=== PATIENT | male | born 1985 | race Caucasian/White ===

== ENCOUNTER 2019-09-25 06:20 | Outpatient (CLI) | payer BC ==
[2019-09-25 12:49] LABS: #Basophils 0.1 thou/uL (0.0-0.2); #Eosinphils 0.2 thou/uL (0.0-0.7); #Lymphocytes 2.7 thou/uL (1.20-3.40); #Monocytes 1.1 thou/uL (0.11-0.59); #Neutrophils 4.2 thou/uL (1.40-6.50); %Basophils 1.1 % (0.0-1.0); %Eosinophils 2.2 % (0.0-10.0); %Lymphocytes 32.3 % (21.0-51.0); %Monocytes 12.8 % (0.0-10.0); %Neutrophils 51.6 % (42.0-75.0); Hemoglobin 16.8 g/dL (14.0-18.0); Mean Corpuscular HGB CONC 34.5 g/dL (32.0-36.0); Mean Corpuscular Hemoglobin 30.1 pg (27.0-31.0); Mean Corpuscular Volume 87.2 fL (78.0-98.0); Mean Platelet Volume 7.3 fL (7.4-10.4); Platelet Count 306 thou/uL (130-400); RBC Distribution Width 11.8 % (11.5-14.5); Red Blood Cell (RBC) Count 5.58 mill/uL (4.70-6.10); White Blood Cell (WBC) Count 8.2 thou/uL (4.8-10.8)
== END 2019-09-25 06:21 | disposition home or self-care (01) ==
LOC: LABBT 06:20
PROVIDERS: ATTEND Orthopaedic Surgery
DX: Z01.812 Encounter for preprocedural laboratory examination (principal); S83.207A Unspecified tear of unspecified meniscus, current injury, left knee, initial encounter
CPT/HCPCS: 85025

== ENCOUNTER 2019-09-27 09:38 | Day surgery (SDC) | payer BC ==
[2019-09-25 09:42] VITALS: BMI 29.4
[2019-09-27] MEDS ORDERED: PROPOFOL 20 ML ONE (09:45)
[2019-09-27] MEDS ORDERED: Dexamethasone 20 MG/5 ML VIAL ONE (10:32)
[2019-09-27] MEDS ORDERED: Bupivacaine HCl 0.5%/Epinephrine 1:200,000/PF 30 ml Vial ONE (10:32)
[2019-09-27] MEDS ORDERED: Ketorolac Tromethamine 30 MG/ML VIAL ONE (10:32)
[2019-09-27] MEDS ORDERED: Lidocaine 2% w/Epinephrine 1:200K 20 ML VIAL ONE (10:32)
[2019-09-27] MEDS ORDERED: Lidocaine 1% PF 5 ML VIAL ONE (10:32)
[2019-09-27] MEDS ORDERED: PROPOFOL 200 MG/20 ML VIAL ONE (10:32)
[2019-09-27] MEDS ORDERED: Ondansetron PF 4 MG/2 ML Vial ONE (10:32)
[2019-09-27] MEDS ORDERED: HYDROmorphone 0.5 MG/0.5 ML SYRINGE ONE (11:10)
[2019-09-27] MEDS ORDERED: Midazolam HCl 2 mg/2 ml Vial ONE (12:13)
--- NOTE | 2019-09-27 12:41 | OP ---
DATE OF PROCEDURE: 09/27/2019 PREOPERATIVE DIAGNOSIS: Left knee medial meniscus tear. 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 PROCEDURE PERFORMED: Arthroscopy with partial medial meniscectomy. MANUFACTURING ASSOCIATE: None. ESTIMATED BLOOD LOSS: Minimal. COMPLICATIONS: None. ANESTHESIA: The patient did have a general anesthetic as well as a local knee block. DISPOSITION: He did go to recovery room in stable condition. INDICATIONS: This is a 34-year-old male, who had an ACL reconstruction done years ago and at this time is presenting for chronic pain and swelling. On MRI scan, he was found to have a medial meniscus tear. DESCRIPTION OF PROCEDURE: After all appropriate consent forms were explained and signed, he was taken to the operative room and at this time was given general anesthetic. Once the level of anesthesia was appropriate, tourniquet was placed on left thigh and leg was then prepped and draped in standard surgical fashion. Limb was exsanguinated and tourniquet was taken up to 300 mmHg. Inferolateral portal was established. Scope was placed into the knee joint. A needle localization technique was then used to make a medial working portal. Diagnostic arthroscopy commenced in the notch. The grafted ACL looked great with a nice synovial sheath. PCL was intact. Displaced bucket-handle medial meniscus tear was noted. This was probed, found to be very old and chronic in appearance, very shaggy, almost like a mop along its entire edge and was felt not to be repairable. We then tried to reduce it and we were unable to do so. Therefore, just confirming the fact that this was old and chronic, was not even reducible. At this time, we then used the meniscal scissors to bite off the posterior horn as close as possible to the end of the tear. We then switched portals and bit off the anterior horn. Meniscus was then removed through the portal. At this time, shaver was introduced to smooth off any edges, but the edges were already smoothed secondary to how long it has been going on. Finally, we just had to trim down a little bit of the meniscus towards the very posterior horn and once this was done, the medial joint was completely free and clear of any loose remaining tissue. Fortunately, the femoral condyle and tibial plateau were in good condition. The lateral compartment was found to be pristine except for two little silver/metal areas on the femoral condyle, which upon probing was found to be flushed, unable to be grasped. We did not wish to dig these out as I was afraid this would leave more of an injury to the cartilage and just these metal flakes were, but my feeling is that maybe these were old metal flakes from his previous surgery, which had become imbedded into his cartilage. We did remove a copious amount of scar tissue throughout the anterior fat pad region, the patellofemoral region and medial and lateral so we could visualize the entire medial and lateral femoral condyles. We then swept through both gutters. No loose bodies were noted and it was felt at this time that we had decompressed the scar tissue nicely. The SERFAS energy was used to coagulate any brisk venous bleeding, so we would not get too much swelling postoperatively and there was no further need for any treatment at this time. At this time, the scope was removed, knee was drained. Portals were closed with simple nylon stitch. Bulky sterile dressing was applied. Tourniquet was let down. Toes pinked up nicely. The patient was then awakened, taken to the recovery room in stable condition. All counts were correct at the end of the case and he did receive preoperative IV antibiotics. Job ID: [id number]
[2019-09-27] MEDS ORDERED: HYDROcodone/Acetaminophen 5/325 mg Tablet ONE (13:56)
== END 2019-09-27 14:30 | disposition home or self-care (01) ==
LOC: SDC 09:38
PROVIDERS: ATTEND Orthopaedic Surgery
PROC: 0SBD4ZZ Excision of Left Knee Joint, Percutaneous Endoscopic Approach (ICD-10-PCS; principal; 2019-09-27)
DX: S83.212A Bucket-handle tear of medial meniscus, current injury, left knee, initial encounter (principal)
CPT/HCPCS: J0670; J0690; J1100; J1170; J1885; J2001; J2250; J2405; J2704